=== PATIENT | male | born 1940 | race Caucasian/White ===

== ENCOUNTER → 2020-09-07 | Outpatient (REF) | payer MEDICARE | LOC: M LAB REF 14:12 | PROVIDERS: ATTEND Physician Assistant | DX: C44.529 Squamous cell carcinoma of skin of other part of trunk (principal); L82.0 Inflamed seborrheic keratosis ==

== ENCOUNTER → 2020-10-05 | Outpatient (REF) | payer MEDICARE, OTHER, BC | LOC: M LAB REF 09:16 | PROVIDERS: ATTEND Dermatology | DX: C44.529 Squamous cell carcinoma of skin of other part of trunk (principal) ==

== ENCOUNTER → 2021-02-15 | Outpatient (REF) | payer MEDICARE, OTHER | LOC: M LAB REF 16:02 | PROVIDERS: ATTEND Nurse Practitioner Family | DX: L57.0 Actinic keratosis (principal); L82.1 Other seborrheic keratosis | CPT/HCPCS: 11102; 17000; 17003; 88305; G0463 ==

== ENCOUNTER → 2021-11-19 | Outpatient (REF) | payer MEDICARE, OTHER | LOC: M SFHCDERM 16:36 | PROVIDERS: ATTEND Physician Assistant | DX: C44.229 Squamous cell carcinoma of skin of left ear and external auricular canal (principal) ==

== ENCOUNTER → 2021-12-27 | Outpatient (CLI) | payer MEDICARE, OTHER ==
[~2021-12-27] MED LIST: CALC1CAP31 PO; LOSA50TA28 PO; SIMV40TA20 PO; SITA50TAB PO; TERA10CA3 PO
== END ==
LOC: M ONCR 11:34
PROVIDERS: ATTEND General Practice
DX: C44.229 Squamous cell carcinoma of skin of left ear and external auricular canal (principal); E11.9 Type 2 diabetes mellitus without complications; I10 Essential (primary) hypertension; Z79.899 Other long term (current) drug therapy; Z80.8 Family history of malignant neoplasm of other organs or systems

== ENCOUNTER 2022-01-08 10:03 | Outpatient (RCR) | payer MEDICARE, BC, OTHER | END 2022-01-11 | LOC: M ONCR 10:03 | PROVIDERS: ATTEND General Practice | DX: C44.320 Squamous cell carcinoma of skin of unspecified parts of face (principal) ==

== ENCOUNTER 2022-02-08 14:51 | Outpatient (RCR) | payer MEDICARE, BC, OTHER | END 2022-02-11 | LOC: M ONCR 14:51 | PROVIDERS: ATTEND General Practice | DX: C44.320 Squamous cell carcinoma of skin of unspecified parts of face (principal) ==

== ENCOUNTER → 2022-03-13 | Outpatient (CLI) | payer MEDICARE, BC, OTHER | LOC: M ONCR 13:45 | PROVIDERS: ATTEND Radiology Radiation Oncology | DX: Z08 Encounter for follow-up examination after completed treatment for malignant neoplasm (principal); Z85.828 Personal history of other malignant neoplasm of skin; Z77.098 Contact with and (suspected) exposure to other hazardous, chiefly nonmedicinal, chemicals; Z92.3 Personal history of irradiation ==

== ENCOUNTER → 2022-07-05 | Outpatient (CLI) | payer MEDICARE, BC, OTHER ==
[~2022-07-05] MED LIST changes: +DEBR6.5S4 OTIC
== END ==
LOC: M ONCR 13:23
PROVIDERS: ATTEND General Practice
DX: C44.229 Squamous cell carcinoma of skin of left ear and external auricular canal (principal); H61.20 Impacted cerumen, unspecified ear; Z77.098 Contact with and (suspected) exposure to other hazardous, chiefly nonmedicinal, chemicals; Z79.84 Long term (current) use of oral hypoglycemic drugs; Z79.899 Other long term (current) drug therapy

== ENCOUNTER → 2023-03-03 | Outpatient (REF) | payer MEDICARE, OTHER | LOC: M SFHCDERM 09:21 | PROVIDERS: ATTEND Physician Assistant | DX: C44.222 Squamous cell carcinoma of skin of right ear and external auricular canal (principal) ==